=== PATIENT | female | born 1950 | race Caucasian/White ===

== ENCOUNTER 2024-02-06 19:08 | Emergency (ER) | payer OTHER, SELFPAY ==
[2024-02-06 19:11] VITALS: BP 162/90; PULSE 77; TEMP 36.4; O2SAT 98; BMI 25.0
--- NOTE | 2024-02-06 19:20 | XR_ITS ---
The [address] [address] Patient Name: MARCO GUARDADO MRN: [id number] date: 1950 Sex: F Assigned Patient Location: ED.MAIN Current Patient Location: Accession/Order Number: [id number] Exam Date: 02/06/2024 19:30 Report Date: 02/06/2024 20:18 At the request of: JOHN MCCLENDON Procedure: XR shoulder LT min 2V EXAM: XR shoulder LT min 2V HISTORY: Left shoulder pain without injury. shoulder pain COMPARISON: None. TECHNIQUE: 3 view left shoulder. FINDINGS: No acute fracture, subluxation or dislocation. Well-preserved joints with normal bone mineralization. No osseous lesion. Normal soft tissues. Imaged left ribs are intact. XR/XR shoulder LT min 2V IMPRESSION: Unremarkable 3 view left shoulder study. Electronically authenticated by: JUAN JOSE SMITH Date: 02/06/2024 20:18
[2024-02-06 19:21] VITALS: O2SAT 98
--- NOTE | 2024-02-06 19:33 | ED.EXTPRO1 ---
HPI - Extremity Problem General Chief complaint: Extremity Problem, Nontraumatic Stated complaint: Upper Pain Time Seen by Provider: 02/06/24 19:20 Source: patient Mode of arrival: walk-in History of Present Illness HPI Narrative: Patient is a 73-year-old female who presents to the emergency department for worsening pain over the left glenohumeral joint into the left scapula today. She reports significant pain with abduction of the left shoulder. She states earlier today she felt a clicking sensation in the left posterior shoulder. She denies any specific mechanism of injury or trauma although she states she was lifting over her head earlier today to put trays away at her job which is not unusual for her. No pain radiation into the left arm, she has no numbness or tingling. No chest pain or shortness of breath. No medications taken prior to arrival. Related Data Previous Rx's ?Medication ?Instructions ?Recorded methocarbamol 750 mg tablet 750 mg PO TID PRN pain #20 tabs 02/06/24 methylprednisolone 4 mg tablets in See Rx Instructions .Route 02/06/24 a dose pack (Medrol (Beau)) .COMPLEX #21 ea Allergies Allergy/AdvReac Type Severity Reaction Status Date / Time No Known Drug Allergies Allergy Verified 02/06/24 19:16 Review of Systems ROS Constitutional Denies: fever or chills Ears, nose, mouth, and throat Denies: throat pain Cardiovascular Denies: chest pain Respiratory Denies: shortness of breath or cough Gastrointestinal Denies: nausea or vomiting Musculoskeletal Reports: extremity pain and limited range of motion; Denies: back pain or neck pain Integumentary/Breast Denies: rash Neurological Denies: headache Hematologic/Lymphatic Denies: easy bruising or easy bleeding Exam Narrative Exam Narrative: Gen.: Awake, alert, in no distress Head: Normocephalic, atraumatic ENT: Moist mucous membranes Respiratory: No respiratory distress Extremities: Limited abduction at the left shoulder, normal photographer finish strength in the left hand with 2+ left radial pulse. Diffuse tenderness over the left glenohumeral joint and left scapula. No bony tenderness of the C-spine Psych: Normal mood and affect Neuro: No focal neuro deficit Skin: Warm, dry, intact Constitutional Vital Signs, click to edit/add: Last Vital Signs Temp 97.6 F 02/06/24 19:11 Pulse 77 02/06/24 19:11 Resp 16 02/06/24 19:11 BP 162/90 H 02/06/24 19:11 Pulse Ox 98 02/06/24 19:21 O2 Del Method Room Air 02/06/24 19:21 Course Vital Signs Vital signs: Vital Signs Temperature 97.6 F 02/06/24 19:11 Pulse Rate 77 02/06/24 19:11 Respiratory Rate 16 02/06/24 19:11 Blood Pressure 162/90 H 02/06/24 19:11 Pulse Oximetry 98 02/06/24 19:11 Oxygen Delivery Method Room Air 02/06/24 19:11 Temperature 97.6 F 02/06/24 19:11 Pulse Rate 77 02/06/24 19:11 Respiratory Rate 16 02/06/24 19:11 Blood Pressure 162/90 H 02/06/24 19:11 Pulse Oximetry 98 02/06/24 19:21 Oxygen Delivery Method Room Air 02/06/24 19:21 MDM - Extremity (Nontraumatic) MDM Narrative Medical decision making narrative: X-rays with no evidence of fracture or dislocation, exam is consistent with rotator Cuff strain versus tendinitis. Patient placed in a sling for comfort, use only for the next 2 to 3 days. Rest, ice, gentle stretching. Follow-up with PCP and orthopedics as needed. Medrol Dosepak and Robaxin given for home. Patient is neurovascularly intact at discharge. Imaging Data xr shoulder: Attestation: I have reviewed the pertinent imaging results. Radiologist's impression: ITS Impressions Shoulder X-Ray 02/06/24 19:20 IMPRESSION: Unremarkable 3 view left shoulder study. Electronically authenticated by: JUAN JOSE SMITH Date: 02/06/2024 20:18 Discharge Plan Discharge Stand Alone Forms: Portal Instructions Chief Complaint: Extremity Problem, Nontraumatic Clinical Impression: Acute pain of left shoulder Patient Disposition: Home, Self-Care Time of Disposition Decision: 19:50 Condition: Good Prescriptions / Home Meds: New methocarbamol 750 mg tablet 750 mg PO TID PRN (Reason: pain) Qty: 20 0RF methylprednisolone [Medrol (Beau)] 4 mg tablets,dose pack See Rx Instructions .ROUTE .COMPLEX Qty: 21 0RF Rx Instructions: Taper as directed Print Language: Citizen Of [place] Instructions: Shoulder Pain (ED) Referrals: Zach Nguyen DO [Primary Care Provider] - 1 week Eze Sheppard MD [Physician] - As needed Discharge Date/Time: 02/06/24 20:13
[2024-02-06] MEDS: METHYLPREDNISOLONE SOD SUCC PF 125 MG/2 ML VIAL IM (20:04)
[2024-02-06] MEDS: METHOCARBAMOL 500 MG TABLET PO (20:05)
== END 2024-02-06 20:13 | disposition home or self-care (01) ==
PROVIDERS: Emergency Provider Internal Medicine; PCP Internal Medicine
DX: M25.512 Pain in left shoulder (principal)
CPT/HCPCS: 73030; 96372; 99284; J2919